=== PATIENT | male | born 2000 | race Caucasian/White ===

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

== ENCOUNTER 2021-03-05 10:50 | Emergency (ER) | payer OTHER ==
[~2021-03-05] VITALS: Ht 175.3 cm; Wt 81.7 kg
[~2021-03-05 10:50] MED LIST: DEPAKOTE 250MG250 M1 PO; KEPPRA 500 MG500 M1 PO; KEPPRA XR500 MG PO
[2021-03-05 11:25] VITALS: BP 119/73
== END 2021-03-05 11:25 | disposition home or self-care (01) ==
LOC: M.ERS 10:50
DX: G40.909 Epilepsy, unspecified, not intractable, without status epilepticus (principal); Z79.899 Other long term (current) drug therapy